=== PATIENT | male | born 1930 | race Caucasian/White ===

== ENCOUNTER 2017-08-01 12:36 | Emergency (ER) | payer MEDICARE ==
[~2017-08-01] VITALS: Ht 170.2 cm; Wt 81.0 kg
[~2017-08-01 12:36] MED LIST: AMARYL1 M1; ASPIRIN LOW DOS81 M2 PO; DICYCLOMINE10 MG PO; GLIMEPIRIDE2 MG PO; LISINOPRIL10 MG PO; OMEPRAZOLE20 M2 PO; PIOGLITAZONE HC45 MG PO; SIMVASTATIN40 MG PO; STATINS; ULTRAM50 M1 PO; ULTRAM50 MG PO; [UNRECOGNIZED DRUG - CODE] SC
[2017-08-01 14:20] VITALS: BP 156/83
== END 2017-08-01 14:20 | disposition home or self-care (01) ==
LOC: ED 12:36
DX: S40.211A Abrasion of right shoulder, initial encounter (principal); S93.402A Sprain of unspecified ligament of left ankle, initial encounter; W01.0XXA Fall on same level from slipping, tripping and stumbling without subsequent striking against object, initial encounter; Y92.009 Unspecified place in unspecified non-institutional (private) residence as the place of occurrence of the external cause

== ENCOUNTER 2018-09-15 05:52 | Emergency (ER) | payer MEDICARE ==
[~2018-09-15] VITALS: Ht 170.2 cm; Wt 73.0 kg
[2018-09-15] MEDS ORDERED: CITALOPRAM10 MG PO (06:08)
[2018-09-15] MEDS ORDERED: VITAMIN D32000 UNIT PO (06:09)
[2018-09-15] MEDS ORDERED: LANTUS SOL100 UNIT/M SC (06:10)
[2018-09-15] MEDS ORDERED: TYLENOL325 MG PO (06:11)
[2018-09-15 08:33] LABS: HEMOGLOBIN 9.3 g/dl (14.0-18.0); IMMATURE GRANULOCYTES 0.7 % (0.0-5.0); MEAN CORPUSCULAR HGB 30.9 pG CALC (26.0-32.0); MEAN CORPUSCULAR HGB CONC 35.1 g/L CALC (32.0-36.0); NEUT# 9.92 thou/uL (1.82-7.42); RED BLOOD COUNT 3.01 mill/uL (4.70-6.10); RED CELL DISTRI WIDTH 12.7 % (11.5-15.5)
[2018-09-15 08:35] LABS: HEMATOCRIT 26.5 % (39.0-50.0)
[2018-09-15 09:09] VITALS: BP 97/53
[2018-09-15 09:11] LABS: ANION GAP 15 (6-22 (CALC)); BUN 33 mg/dL (8-23); BUN/CREATININE RATIO 25 (12-20 (CALC)); CARBON DIOXIDE 26 mmol/l (22-30); CHLORIDE 90 mmol/l (95-108); CREATININE 1.3 mg/dL (0.7-1.3); GFR 52 ML/MIN (>=60 (CALC)); GFR FOR AFR.AMER. > 60 ML/MIN (>=60 (CALC))
[2018-09-15 09:19] LABS: SODIUM 126 mmol/l (137-146)
== END 2018-09-15 09:09 ==
LOC: ED 05:52
PROVIDERS: Family Medicine
PROC: 0T9B70Z Drainage of Bladder with Drainage Device, Via Natural or Artificial Opening (ICD-10-PCS; principal; 2018-09-15)
DX: S12.111A Posterior displaced Type II dens fracture, initial encounter for closed fracture (principal); S00.03XA Contusion of scalp, initial encounter; S40.011A Contusion of right shoulder, initial encounter; S50.01XA Contusion of right elbow, initial encounter; S40.012A Contusion of left shoulder, initial encounter; S40.212A Abrasion of left shoulder, initial encounter; S50.311A Abrasion of right elbow, initial encounter; S00.01XA Abrasion of scalp, initial encounter; W01.198A Fall on same level from slipping, tripping and stumbling with subsequent striking against other object, initial encounter; Y92.129 Unspecified place in nursing home as the place of occurrence of the external cause